=== PATIENT | female | born 1990 | race African-American/Black ===

== ENCOUNTER 2018-02-22 09:33 | Emergency (ER) | payer OTHER ==
[2018-02-22 12:05] LABS: Urine Blood NEGATIVE (NEG); Urine Glucose NEGATIVE (NEG); Urine Protein NEGATIVE (NEG); Urine Specific Gravity 1.015 (1.005-1.030); Urine pH 7.5 (5.0-7.0)
[2018-02-22 12:06] LABS: Absolute Lymphocytes (CBC) 1.2 K/uL (0.7-4.9); Absolute Monocytes 0.5 K/uL (0.1-1.3); Absolute Neutrophil 4.6 K/uL (1.8-8.0); Basophils % 0.5 % (0-1.3); Eosinophils % 3.1 % (0-4.4); Hematocrit 34.9 % (36.0-45.0); Lymphocytes % 17.8 % (15.3-44.8); MCH 30.1 pg (27.0-35.0); MCV 93.3 fL (80-100); MPV 8.8 fL (7.6-11.3); Monocytes % 7.9 % (3.3-12.3); RBC Red Blood Cell Count 3.74 M/uL (3.86-4.86)
[2018-02-22 12:23] LABS: Bicarbonate 25 mEq/L (21-31); Glucose Level 58 mg/dL (65-120); Potassium 3.5 mEq/L (3.6-5.0); Sodium Level 135 mEq/L (135-145)
[2018-02-22 12:24] LABS: BUN Blood Urea Nitrogen 8 mg/dL (6-20)
--- NOTE | 2018-02-22 12:46 | RAD REPORT ---
EXAM DESCRIPTION: US - OB Limited - 02/22/2018 12:20 pm CLINICAL HISTORY: age. COMPARISON: None. FINDINGS: Single live intrauterine gestation is identified. Heart rate measures 154 BPM. anatomic survey and biometry was not requested or performed. Gestational age is 16 weeks 5 days based on dates. Normal volume of fluid is seen. No placental abruption seen. Neither ovary was well seen. No adnexal masses.
--- NOTE | 2018-02-22 13:13 | ER ---
Nurse's Notes [facility] Name: Lyndsey Ellis Age: 27 yrs Sex: Female : 1990 Arrival Date: 02/22/2018 Time: 09:34 Bed 7 Private MD: Elizabeth Vyas Diagnosis: 16 weeks gestation of Presentation: 02/22 09:44 Presenting complaint: Patient states: woke up and felt pain in left abd area, pelvic iw pain, then pain in upper abd, feels like pressure and mild cramping, uncomfortable, denies bleeding, approx 16-17 weeks , sees Dr. Vyas, was told to come for evaluation in ER. Transition of care: patient was not received from another setting of care. Onset of symptoms was February 22, 2018. Initial Sepsis Screen: Does the patient meet any 2 criteria? No. Patient's initial sepsis screen is negative. Does the patient have a suspected source of infection? No. Patient's initial sepsis screen is negative. Care prior to arrival: None. 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 - Social history:: Smoking status: Patient/guardian denies using tobacco. Screenin:22 Abuse screen: Denies threats or abuse. Denies injuries from another. Nutritional sv screening: No deficits noted. Tuberculosis screening: No symptoms or risk factors identified. Fall Risk None identified. Assessment: 11:30 General: Appears in no apparent distress. uncomfortable, Behavior is calm, cooperative, sv appropriate for age. Pain: Complains of pain in suprapubic area, right lower quadrant and left lower quadrant Pain currently is 7 out of 10 on a pain scale. Quality of pain is described as pressure, tender, Is intermittent. Neuro: Level of Consciousness is awake, alert, obeys commands, Oriented to person, place, time, situation, Moves all extremities. Full function Gait is steady, Speech is normal. Cardiovascular: Patient's skin is warm and dry. Respiratory: Respiratory effort is even, unlabored, Respiratory pattern is regular, symmetrical. GI: Abdomen is round pt currently Abd is soft X 4 quads Abd is non tender in right upper quadrant and left upper quadrant Abdomen is tender to palpation in suprapubic area, right lower quadrant and left lower quadrant left side greater than right. Derm: Skin is pink, warm \T\ dry. Musculoskeletal: Range of motion: intact in all extremities. 13:30 Reassessment: Waiting on food tray to be brought to pt before discharge. sv 13:35 Reassessment: Food tray brought to pt. sv 13:57 Reassessment: Patient appears in no apparent distress at this time. No changes from sv previously documented assessment. Patient and/or family updated on plan of care and expected duration. Pain level reassessed. Patient is alert, oriented x 3, equal unlabored respirations, skin warm/dry/pink. Vital Signs: 09:46 BP 114 / 62; Pulse 85; Resp 16; Temp 98.4; Pulse Ox 100% ; Weight 68.04 kg; Height 5 iw ft. 5 in. (165.10 cm); Pain 7/10; 13:58 BP 133 / 56; Pulse 85; Resp 18; Pulse Ox 100% ; sv 09:46 Body Mass Index 24.96 (68.04 kg, 165.10 cm) iw ED Course: 09:34 Patient arrived in ED. as 09:34 Elizabeth Vyas MD is Private Physician. as 09:46 Triage completed. iw 11:21 Gail Meek, RN is Primary Nurse. sv 11:21 Patient taken to an exam room, ambulatory, steady gait. sv 11:22 Patient has correct armband on for positive identification. Bed in low position. Call sv light in reach. Door closed. Head of bed elevated. 11:22 Arm band placed on right wrist. sv 11:25 Chandni Alcantara [facility]-C [facility]. kb 11:25 Jonnathan Encarnacion MD is Attending Physician. kb 11:35 Inserted saline lock: 20 gauge in left antecubital area, using aseptic technique. sv ,using aseptic technique. done by [facility] tech Blood collected. 11:41 Note: us done portable/bedside in er. sg3 12:11 OB Limited In Process Unspecified. EDMS 13:57 No provider procedures requiring assistance completed. IV discontinued, intact, sv bleeding controlled, No redness/swelling at site. Pressure dressing applied. Administered Medications: No medications were administered Outcome: 13:13 Discharge ordered by . marcio 13:57 Discharged to home ambulatory. sv 13:57 Condition: stable 13:57 Discharge instructions given to patient, Instructed on discharge instructions, follow up and referral plans. Demonstrated understanding of instructions, follow-up care. 13:58 Patient left the ED. sv Signatures: Dispatcher [employer] EDSD Chandni Alcantara, BEER RUNNER-C BEER RUNNER-Gail Araujo, RN RN Liza Singh Irene, RN Mariajose Garibay sg3
--- NOTE | 2018-02-22 13:13 | EDPHYS ---
Physician Documentation [facility] Name: Lyndsey Ellis Age: 27 yrs Sex: Female : 1990 Arrival Date: 02/22/2018 Time: 09:34 Bed 7 Private MD: Elizabeth Vyas ED Physician Jonnathan Encarnacion HPI: 02/22 12:13 This 27 yrs old Black Female presents to ER via Ambulatory with complaints of Pelvic kb Pain - 17 Weeks Preg. 12:13 The patient presents to the emergency department with abdominal pain, of the suprapubic kb area, that started this morning. The estimated gestational age is 17 weeks. course: care: private OB physician, Dr. Vyas, Leakage of Fluid: none appreciated, Ultrasound: the patient had an ultrasound, which was normal, Risk/complications: no obvious risks or complications are appreciated. Associated signs and symptoms: Pertinent positives: abdominal pain, Pertinent negatives: chest pain, diarrhea, dysuria, fever, frequency, nausea, ruptured membranes, seizure, shortness of breath, vaginal bleeding, vaginal discharge, vomiting. The patient has not experienced similar symptoms in the past. The patient has not recently seen a physician. Pt reports pelvic pain/pressure that radiates to bilateral lower quadrants. States she hadn't felt that before so she called her OB. The nurse said she could come to the ER for evaluation for piece of mind.. 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 - Social history:: Smoking status: Patient/guardian denies using tobacco. ROS: 12:13 Constitutional: Negative for fever, chills, and weight loss, Cardiovascular: Negative kb for chest pain, palpitations, and edema, Respiratory: Negative for shortness of breath, cough, wheezing, and pleuritic chest pain, Back: Negative for injury and pain, : Negative for injury, bleeding, discharge, and swelling, MS/Extremity: Negative for injury and deformity, Skin: Negative for injury, rash, and discoloration, Neuro: Negative for headache, weakness, numbness, tingling, and seizure. 12:13 Abdomen/GI: Positive for abdominal pain, Negative for nausea, vomiting, and diarrhea, constipation, abdominal cramps, abdominal distension, anorexia. Exam: 12:13 Constitutional: This is a well developed, well nourished patient who is awake, alert, kb and in no acute distress. Head/Face: Normocephalic, atraumatic. Chest/axilla: Normal chest wall appearance and motion. Nontender with no deformity. No lesions are appreciated. Cardiovascular: Regular rate and rhythm with a normal S1 and S2. No gallops, murmurs, or rubs. Normal PMI, no JVD. No pulse deficits. Respiratory: Lungs have equal breath sounds bilaterally, clear to auscultation and percussion. No rales, rhonchi or wheezes noted. No increased work of breathing, no retractions or nasal flaring. Back: No spinal tenderness. No costovertebral tenderness. Full range of motion. Skin: Warm, dry with normal turgor. Normal color with no rashes, no lesions, and no evidence of cellulitis. MS/ Extremity: Pulses equal, no cyanosis. Neurovascular intact. Full, normal range of motion. Neuro: Awake and alert, GCS 15, oriented to person, place, time, and situation. Cranial nerves II-XII grossly intact. Motor strength 5/5 in all extremities. Sensory grossly intact. Cerebellar exam normal. Normal gait. 12:13 Abdomen/GI: Inspection: gravid appearance, is noted, Bowel sounds: normal, in all quadrants, Palpation: soft, mild abdominal tenderness, in the right lower quadrant, moderate abdominal tenderness, in the suprapubic area and left lower quadrant. Vital Signs: 09:46 BP 114 / 62; Pulse 85; Resp 16; Temp 98.4; Pulse Ox 100% ; Weight 68.04 kg; Height 5 iw ft. 5 in. (165.10 cm); Pain 7/10; 13:58 BP 133 / 56; Pulse 85; Resp 18; Pulse Ox 100% ; sv 09:46 Body Mass Index 24.96 (68.04 kg, 165.10 cm) iw MDM: 11:25 Patient medically screened. kb 12:16 Data reviewed: vital signs, nurses notes. Data interpreted: Pulse oximetry: on room air kb is 100 %. Interpretation: normal. Counseling: I had a detailed discussion with the patient and/or guardian regarding: the historical points, exam findings, and any diagnostic results supporting the discharge/admit diagnosis, lab results, radiology results, the need for outpatient follow up, an OB/Gyne specialist, to return to the emergency department if symptoms worsen or persist or if there are any questions or concerns that arise at home. 02/22 11:31 Order name: Quantitative Hcg; Complete Time: 13:02 kb 02/22 11:31 Order name: Abo/rh Typing; Complete Time: 13:02 kb 02/22 11:31 Order name: Basic Metabolic Panel; Complete Time: 13:02 kb 02/22 11:31 Order name: CBC with Diff; Complete Time: 12:11 kb 02/22 11:41 Order name: Urine Dipstick--Ancillary (enter results); Complete Time: 12:11 eb 02/22 11:31 Order name: IV Saline Lock; Complete Time: 11:45 kb 02/22 11:31 Order name: Labs collected and sent; Complete Time: 11:45 kb 02/22 11:31 Order name: NPO; Complete Time: 11:33 kb 02/22 11:31 Order name: Urine Dipstick-Ancillary (obtain specimen); Complete Time: 11:45 kb 02/22 11:40 Order name: OB Limited; Complete Time: 12:47 EDMS 02/22 12:48 Order name: Diet Regular; Complete Time: 12:48 kb Administered Medications: No medications were administered Disposition: 02/22/18 13:13 Discharged to Home. Impression: 16 weeks gestation of . - Condition is Stable. - Discharge Instructions: Second Trimester of , [id number]. - Medication Reconciliation Form, Thank You Letter, Antibiotic Education, Prescription Opioid Use, Work release form form. - Follow up: Emergency Department; When: As needed; Reason: Worsening of condition. Follow up: Private Physician; When: 2 - 3 days; Reason: Recheck today's complaints, Continuance of care, Re-evaluation by your physician. Addendum: 02/24/2018 10:43 Co-signature as Attending Physician, Jonnathan Encarnacion MD I agree with the assessment and w a plan of care. Signatures: Dispatcher [employer] Chandni Fernandez, CHRIS ROMERO-Ckb Gail Meek, RN RN Marcia Lambert RN RN Jonnathan Encarnacion MD MD wa Corrections: (The following items were deleted from the chart) 02/22 11:40 11:31 OB Complete+US.RAD.IDRIS ordered. EDMS EDMS 13:58 13:13 02/22/2018 13:13 Discharged to Home. Impression: 16 weeks gestation of . sv Condition is Stable. Discharge Instructions: Second Trimester of , [id number]. Forms are Medication Reconciliation Form, Thank You Letter, Antibiotic Education, Prescription Opioid Use. Follow up: Emergency Department; When: As needed; Reason: Worsening of condition. Follow up: Private Physician; When: 2 - 3 days; Reason: Recheck today's complaints, Continuance of care, Re-evaluation by your physician. kb
[2018-02-22 14:02] VITALS: TEMP 98.4; O2SAT 100
[2018-02-22 14:03] VITALS: BP 133/56
== END 2018-02-22 13:58 | disposition home or self-care (01) ==
LOC: ER 09:33
DX: O26.892 Other specified pregnancy related conditions, second trimester (principal); R10.2 Pelvic and perineal pain; Z3A.16 16 weeks gestation of pregnancy
CPT/HCPCS: 36415; 76815; 80048; 81003; 84702; 85025; 86900; 86901; 99284